=== PATIENT | male | born 1940 | race Caucasian/White ===

== ENCOUNTER 2025-01-10 06:15 | Day surgery (SDC) | payer MEDICARE ==
[2025-01-09 10:27] VITALS: BMI 31.1
[2025-01-10 07:36] LABS: Hematocrit 42.9 % (38.8-50.0); Hemoglobin 13.8 g/dL (13.5-17.5)
[2025-01-10 07:59] LABS: Anion Gap 17 mmol/L (10-20); BUN (Urea Nitrogen) 25 mg/dL (8.4-25.7); Calc. Creatinine Clearance 58 mL/min (70-130); Calcium 9.6 mg/dL (7.8-10.44); Carbon Dioxide 24 mmol/L (23-31); Chloride 105 mmol/L (98-107); Glucose 105 mg/dL (83-110); Potassium 4.9 mmol/L (3.5-5.1); Sodium 141 mmol/L (136-145)
[2025-01-10] MEDS ORDERED: Ciprofloxacin 0.2% Otic (0.25ML CONTAINER) ONE (08:05)
[2025-01-10] MEDS ORDERED: AFRIN NASAL MIST 15 ML BOT ONE (08:07)
[2025-01-10] MEDS ORDERED: PROPOFOL 20 ML ONE (08:13)
[2025-01-10] MEDS ORDERED: Lidocaine 1% PF 5 ML VIAL ONE (08:15)
[2025-01-10] MEDS ORDERED: Lidocaine 1% w/Epinephrine 1:200K 30 ML VIAL ONE (08:35)
[2025-01-10] MEDS ORDERED: Bacitracin 1 PK ONE (08:44)
[2025-01-10] MEDS ORDERED: Ondansetron PF 4 MG/2 ML Vial ONE (08:45)
[2025-01-10] MEDS ORDERED: HYDROcodone/Acetaminophen 5/325 mg Tablet ONE (09:36)
== END 2025-01-10 10:05 | disposition home or self-care (01) ==
LOC: CSHSDC 06:15
PROVIDERS: ATTEND Otolaryngology Plastic Surgery within the Head & Neck
PROC: 0NB60ZZ Excision of Left Temporal Bone, Open Approach (ICD-10-PCS; principal; 2025-01-10)
DX: H70.92 Unspecified mastoiditis, left ear (principal); H60.02 Abscess of left external ear; H60.8X2 Other otitis externa, left ear; H91.90 Unspecified hearing loss, unspecified ear; B02.9 Zoster without complications; I10 Essential (primary) hypertension; E11.9 Type 2 diabetes mellitus without complications; Z90.49 Acquired absence of other specified parts of digestive tract; Z98.890 Other specified postprocedural states; Z79.84 Long term (current) use of oral hypoglycemic drugs; Z79.82 Long term (current) use of aspirin; Z79.899 Other long term (current) drug therapy; Z88.8 Allergy status to other drugs, medicaments and biological substances
CPT/HCPCS: 11044; 80048; 85014; 85018; 87070; 87076; 87205; J2405; J2704; J3010; 88304